=== PATIENT | female | born 1965 | race African-American/Black ===

== ENCOUNTER 2017-07-30 07:53 | Emergency (ER) | payer OTHER ==
[~2017-07-30] VITALS: Ht 165.1 cm; Wt 101.2 kg
--- NOTE | ~2017-07-30 | EKG ---
[place] [address] [facility] [employer] [place] [address] ELECTROCARDIOGRAM REPORT Name: JUDY SKINNER Room #: PRE [facility].RMelva#: [id number] Admission: Attend Phys: Discharge: Date of : 63 Report #: [id number] THIS REPORT FOR: //name// [facility] ED Test Date: 2017-07-30 Test Time: 07:55:11 Pat Name: JUDY SKINNER Department: Room: Gender: F Cash Posting Clerk: MIKE : 1965 Requested By: Zeke Burroughs Order Number: [id number] MD: Carlos Sheridan Measurements Intervals [place] Rate: 72 P: 46 SC: 164 QRS: -21 QRSD: 97 T: 24 QT: 370 QTc: 405 Interpretive Statements Sinus rhythm Borderline left axis deviation Baseline wander in lead(s) V3,V5,V6 No previous ECG available for comparison Electronically Signed On 07-30-2017 8:51:56 CDT by Carlos Sheridan [email or web address] <ELECTRONICALLY SIGNED> By: Carlos Sheridan MD, [facility] 07/30/17 [phone] Carlos Sheridan MD, FACC /EPI
[2017-07-30 08:25] LABS: ABSOLUTE NEUTROPHILS 4.3 thou/uL (1.4-8.2); BASOPHILS 1.2 % (0.0-2.0); EOSINOPHILS 2.2 % (0.0-3.0); HEMATOCRIT 36.6 % (37.0-47.0); HEMOGLOBIN 11.9 gm/dL (12.0-15.0); LYMPHOCYTES 42.8 % (24.0-44.0); MCH 27.9 pg (26.0-34.0); MCHC 32.6 g/dL (28.0-37.0); MCV 85.4 fL (80.0-100.0); MONOCYTES 5.4 % (1.0-8.0); PLATELET COUNT 280 thou/uL (150-400); POLYS 48.4 % (36.0-66.0); RBC 4.29 mil/uL (4.20-5.00); RDW 14.3 % (10.5-14.5); WBC 8.9 thou/uL (4.0-11.0)
[2017-07-30] MEDS ORDERED: VITAMIN B-12500 MCG PO (08:27)
[2017-07-30 08:28] LABS: ANION GAP 9 mmol/L (7-16); BUN 17 mg/dL (7-18); CALCIUM 9.7 mg/dL (8.5-10.1); CHLORIDE 105 mmol/L (98-107); CO2 25 mmol/L (21-32); GLUCOSE 110 mg/dL (74-106); POTASSIUM 4.1 mmol/L (3.5-5.1); SODIUM 139 mmol/L (136-145)
[2017-07-30] MEDS ORDERED: ASPIR 8181 MG PO (08:28)
[2017-07-30] MEDS ORDERED: VITAMIN D1000 UNI1 PO (08:28)
[2017-07-30] MEDS ORDERED: VITAMIN E400 UNIT PO (08:28)
[2017-07-30] MEDS ORDERED: VITAMINC500 PO (08:28)
[2017-07-30 08:36] LABS: TROPONIN-I < 0.04 ng/mL (<0.06)
[2017-07-30] MEDS ORDERED: ALEVE220 MG PO (09:12)
[2017-07-30] MEDS ORDERED: NORCO 5-325 TA1 EACH PO (09:12)
[2017-07-30] MEDS ORDERED: PROTONIX40 M2 PO (09:12)
[2017-07-30 09:29] VITALS: BP 137/87
== END 2017-07-30 09:29 | disposition home or self-care (01) ==
LOC: ER 07:53
PROVIDERS: Emergency Medicine
DX: R07.89 Other chest pain (principal); Z88.6 Allergy status to analgesic agent

== ENCOUNTER → 2017-08-21 | Outpatient (CLI) | payer OTHER ==
[~2017-08-21] MED LIST: ALEVE220 MG PO; ASPIR 8181 MG PO; NORCO 5-325 TA1 EACH PO; PROTONIX40 M2 PO; VITAMIN B-12500 MCG PO; VITAMIN D1000 UNI1 PO; VITAMIN E400 UNIT PO; VITAMINC500 PO
== END ==
LOC: RAD 01:32
DX: Z12.31 Encounter for screening mammogram for malignant neoplasm of breast (principal)

== ENCOUNTER → 2017-09-12 | Outpatient (CLI) | payer OTHER | LOC: ULTRA 09:16 | DX: N63.10 Unspecified lump in the right breast, unspecified quadrant (principal) ==

== ENCOUNTER → 2018-04-14 | Outpatient (CLI) | payer OTHER | LOC: CAT 08:29 | DX: N28.1 Cyst of kidney, acquired (principal); M48.061 Spinal stenosis, lumbar region without neurogenic claudication; M47.816 Spondylosis without myelopathy or radiculopathy, lumbar region; Z90.710 Acquired absence of both cervix and uterus ==

== ENCOUNTER 2018-08-29 08:04 | Emergency (ER) | payer OTHER ==
[~2018-08-29] VITALS: Ht 165.1 cm; Wt 93.9 kg
[2018-08-29 08:41] LABS: ABSOLUTE NEUTROPHILS 3.1 thou/uL (1.4-8.2); EOSINOPHILS 2.4 % (0.0-3.0); HEMOGLOBIN 13.1 gm/dL (12.0-15.0); LYMPHOCYTES 37.9 % (24.0-44.0); MCH 28.4 pg (26.0-34.0); MCHC 33.6 g/dL (28.0-37.0); MCV 84.5 fL (80.0-100.0); MONOCYTES 6.2 % (1.0-8.0); PLATELET COUNT 258 thou/uL (150-400); POLYS 52.5 % (36.0-66.0); RBC 4.62 mil/uL (4.20-5.00); RDW 14.1 % (10.5-14.5); WBC 5.9 thou/uL (4.0-11.0)
[2018-08-29 08:41] LABS: URINE BILIRUBIN NEGATIVE (Negative); URINE BLOOD NEGATIVE (Negative); URINE CLARITY CLEAR; URINE COLOR YELLOW; URINE GLUCOSE-RANDOM* NEGATIVE (Negative); URINE KETONES NEGATIVE (Negative); URINE LEUKOCYTES-REFLEX NEGATIVE (Negative); URINE NITRITE-REFLEX NEGATIVE (Negative); URINE PROTEIN (DIPSTICK) NEGATIVE (Negative); URINE UROBILINOGEN 0.2 E.U./dl (0.2-1.0)
[2018-08-29 08:59] LABS: ALBUMIN 4.3 g/dL (3.4-5.0); DIRECT BILIRUBIN 0.1 mg/dL (<0.1-0.3); TOTAL BILIRUBIN 0.4 mg/dL (<0.1-1.0); TOTAL PROTEIN 9.2 g/dL (6.4-8.2)
[2018-08-29] MEDS ORDERED: TRAMADOL 50 MG50 MG PO (09:25)
[2018-08-29] MEDS ORDERED: NORCO 5-325 TA1 EAC1 PO (09:59)
[2018-08-29 10:12] VITALS: BP 115/63
== END 2018-08-29 10:13 | disposition home or self-care (01) ==
LOC: ER 08:04
PROVIDERS: Emergency Medicine
DX: R10.31 Right lower quadrant pain (principal); Z88.6 Allergy status to analgesic agent

== ENCOUNTER → 2018-09-02 | Outpatient (CLI) | payer OTHER ==
[~2018-09-02] MED LIST changes: +NORCO 5-325 TA1 EAC1 PO; +TRAMADOL 50 MG50 MG PO
== END ==
LOC: RAD 09:36
DX: R10.11 Right upper quadrant pain (principal)

== ENCOUNTER → 2018-10-13 | Outpatient (CLI) | payer OTHER ==
[~2018-10-13] VITALS: Ht 165.1 cm; Wt 90.7 kg
[~2018-10-13] MED LIST changes: +EMERGEN-C 1,01000 MG PO; +PROTONIX40 M1 PO; +VITAMIN B-121000 MCG PO; +VITAMIN D31000 UNI2 PO
--- NOTE | 2018-10-14 15:07 | PATH ---
[facility] [place] [address] PATHOLOGY RPT PROCEDURE Name: JUDY PEDROZA Room #: REG [facility] Lida.#: [id number] Admission: 10/13/18 Date of : 63 Discharge: Report #: [id number] Path Case #: [id number] [facility] Accession Number: [id number] . 01 Material submitted: . sigmoid colon - POLYP AT SIGMOID COLON X2 . 01 Clinical history: . Pre-OP DX: Hx colon polyps Post-OP DX: Colon polyps, hemorrhoids . 02 Diagnosis: Colon, sigmoid, biopsy: - Hyperplastic colonic mucosa, approximately four fragments. . (SKM:mml; 10/14/2018) QLM/10/14/2018 . 02 Electronically signed: . Kuldip Farah MD, Pathologist NPI- [id number] . 01 Gross description: . Received in formalin labeled "Judy Pedroza, polyp at sigmoid colon x2," are 4 segments of riggins soft tissue measuring 1.0 x 0.8 x 0.4 cm in aggregate dimensions and ranging from 0.2 to 0.7 cm in maximum dimension. The specimen is submitted entirely in cassette A1. (TSD; 10/13/2018) TOB/TOB . 02 Pathologist provided ICD-10: Z86.010 . 02 CPT . 037339 Specimen Comment: A courtesy copy of this report has been sent to Specimen Comment: [phone], . Specimen Comment: Report sent to / DR OVIEDO Specimen Comment: A duplicate report has been generated due to demographic updates. Performed at: [address] [id number] MD Rashad Nguyen MD Phone: [phone] Performed at: [address] [id number] [address] [address] PATHOLOGY RPT PROCEDURE Name: JUDY PEDROZA Room #: REG CLStef Hilton.#: [id number] Admission: 10/13/18 Date of : 63 Discharge: Report #: [id number] Path Case #: [id number] MD Sonya Carlin MD Phone: [phone]
== END | disposition home or self-care (01) ==
LOC: GI 09:45
DX: K63.5 Polyp of colon (principal); K64.8 Other hemorrhoids; K21.9 Gastro-esophageal reflux disease without esophagitis; Z86.010 Personal history of colon polyps; Z90.711 Acquired absence of uterus with remaining cervical stump; Z98.890 Other specified postprocedural states; Z87.891 Personal history of nicotine dependence; Z88.8 Allergy status to other drugs, medicaments and biological substances
CPT/HCPCS: 62110; 62900

== ENCOUNTER → 2019-03-03 | Outpatient (CLI) | payer OTHER | LOC: BC 08:41 | DX: Z12.31 Encounter for screening mammogram for malignant neoplasm of breast (principal) ==

== ENCOUNTER 2019-03-29 15:19 | Emergency (ER) | payer OTHER ==
[~2019-03-29] VITALS: Ht 165.1 cm; Wt 90.7 kg
[2019-03-29] MEDS ORDERED: PHENERGAN 25 MG25 M1 PO (17:18)
[2019-03-29] MEDS ORDERED: NORFLEX100 MG PO (17:18)
[2019-03-29 17:35] VITALS: BP 166/97
== END 2019-03-29 17:38 | disposition home or self-care (01) ==
LOC: ER 15:19
DX: R51 Headache (principal); K21.9 Gastro-esophageal reflux disease without esophagitis; Z90.89 Acquired absence of other organs; Z90.711 Acquired absence of uterus with remaining cervical stump; Z98.890 Other specified postprocedural states; Z88.6 Allergy status to analgesic agent

== ENCOUNTER 2019-04-18 07:48 | Emergency (ER) | payer OTHER ==
[~2019-04-18] VITALS: Ht 165.1 cm; Wt 93.0 kg
[~2019-04-18 07:48] MED LIST changes: +NORFLEX100 MG PO; +PHENERGAN 25 MG25 M1 PO
[2019-04-18 09:25] VITALS: BP 142/74
== END 2019-04-18 09:25 | disposition home or self-care (01) ==
LOC: ER 07:48
DX: J02.9 Acute pharyngitis, unspecified (principal); K21.9 Gastro-esophageal reflux disease without esophagitis; Z90.49 Acquired absence of other specified parts of digestive tract; Z90.711 Acquired absence of uterus with remaining cervical stump; Z88.6 Allergy status to analgesic agent